=== PATIENT | female | born 1995 | race Caucasian/White ===

== ENCOUNTER → 2016-11-10 | Outpatient (CLI) | payer OTHER ==
[~2016-11-10] MED LIST: CETI10TA84 PO; MONT1TAB3 PO; PRENTAB26 PO
[2016-11-10 13:51] LABS: GTGD 50 Grams
[2016-11-11 15:19] LABS: AFP CONCENTRATION 30.3 NG/ML; AFP MULTIPLE OF MEDIAN 1.02; AFPTS GESTATIONAL AGE 16.6 WEEKS; AFPTS INSULIN DEP DIABETIC? NO; AFPTS MATERNAL WT 195 LBS; ALPHA-FETOPROTEIN RACE CAUCASIAN=W; ESTRIOL MULTIPLE OF MEDIAN 0.91; HISTORY OF NTD NO; INHIBIN A 625 PG/ML; INHIBIN A MOM 4.22; REPEAT SAMPLE? NO; hCG MULTIPLE OF MEDIAN 1.27
== END | disposition home or self-care (01) ==
LOC: C.LAB1850 11:04
PROVIDERS: ATTEND Obstetrics & Gynecology
DX: Z34.90 Encounter for supervision of normal pregnancy, unspecified, unspecified trimester (principal)

== ENCOUNTER → 2017-01-06 | Outpatient (CLI) | payer OTHER ==
[2017-01-06 13:55] LABS: URINE APPEARANCE CLEAR (CLEAR); URINE BILIRUBIN NEG (NEG); URINE COLOR YELLOW; URINE EPITHELIAL CELL AUTO >30 /lpf (0-5); URINE NITRITE NEG (NEG); URINE PH 7.5 (4.5-7.5); UROBILINOGEN NEG (NEG); ZZUR CULT IF INDIC CLEAN CATCH YES
[2017-01-06 14:16] LABS: MANUAL MICROSCOPIC REQUIRED? NO; REVIEW REQ? NO; SULFASALICYLIC ACID POS (NEG)
== END | disposition home or self-care (01) ==
LOC: C.LABSPEC 13:28
PROVIDERS: ATTEND Obstetrics & Gynecology
DX: Z87.59 Personal history of other complications of pregnancy, childbirth and the puerperium (principal)

== ENCOUNTER → 2017-01-12 | Outpatient (CLI) | payer OTHER ==
[2017-01-12 12:00] LABS: PATIENT HEIGHT 162.6 cm
[2017-01-12 14:04] LABS: URINE TOTAL PROTEIN 40.5 mg/dl (0-11.9)
[2017-01-12 14:16] LABS: CREATININE 0.69 mg/dl (0.6-1.2); URINE TOTAL PROTEIN CALC 575.1 mg/24 hr (0-149.1)
== END | disposition home or self-care (01) ==
LOC: C.LAB1850 11:49
PROVIDERS: ATTEND Obstetrics & Gynecology
DX: Z34.82 Encounter for supervision of other normal pregnancy, second trimester (principal)

== ENCOUNTER → 2017-01-17 | Outpatient (CLI) | payer OTHER ==
[2017-01-17 16:42] LABS: HEMATOCRIT 37.2 % (37-47); MEAN CELL VOLUME 92.8 fL (80-100); MEAN CORPUSCULAR HEMOGLOBIN 31.2 pg (25-34); MEAN CORPUSCULAR HGB CONC 33.6 g/dl (32-36); PLATELET COUNT 284 K/uL (130-400); RED BLOOD COUNT 4.01 M/uL (4.2-5.4); WHITE BLOOD COUNT 11.39 K/uL (4.8-10.8)
[2017-01-17 17:03] LABS: ALT/SGPT 22 U/L (12-78); AST/SGOT 20 U/L (15-37); BLOOD UREA NITROGEN 13 mg/dl (7-18); BUN/CREATININE RATIO 20.5 (10-20); CALCIUM 9.1 mg/dl (8.5-10.1); CARBON DIOXIDE 27 mmol/L (21-32); CHLORIDE 107 mmol/L (98-107); CREATININE 0.62 mg/dl (0.60-1.20); GLUCOSE 59 mg/dl (70-99); POTASSIUM 3.8 mmol/L (3.5-5.1); SODIUM 140 mmol/L (136-145)
[2017-01-17 17:06] LABS: ALB/GLOB RATIO 0.9 (0.9-2); ALKALINE PHOSPHATASE 72 U/L (45-117)
== END | disposition home or self-care (01) ==
LOC: C.LAB1850 15:03
PROVIDERS: ATTEND Obstetrics & Gynecology
DX: O12.12 Gestational proteinuria, second trimester (principal)

== ENCOUNTER → 2017-01-23 | Outpatient (CLI) | payer OTHER ==
[2017-01-23 13:18] LABS: HEMATOCRIT 38.8 % (37-47); MEAN CELL VOLUME 92.8 fL (80-100); MEAN CORPUSCULAR HEMOGLOBIN 30.4 pg (25-34); MEAN CORPUSCULAR HGB CONC 32.7 g/dl (32-36); MEAN PLATELET VOLUME 10.9 fL (7.4-10.4); PLATELET COUNT 296 K/uL (130-400); RED BLOOD COUNT 4.18 M/uL (4.2-5.4); WHITE BLOOD COUNT 12.26 K/uL (4.8-10.8)
[2017-01-23 13:59] LABS: CALCIUM 9.4 mg/dl (8.5-10.1)
[2017-01-23 14:04] LABS: ALB/GLOB RATIO 0.9 (0.9-2); ALKALINE PHOSPHATASE 68 U/L (45-117); ALT/SGPT 18 U/L (12-78); AST/SGOT 18 U/L (15-37); BLOOD UREA NITROGEN 9 mg/dl (7-18); CARBON DIOXIDE 25 mmol/L (21-32); CHLORIDE 106 mmol/L (98-107); CREATININE 0.62 mg/dl (0.60-1.20); GLUCOSE 61 mg/dl (70-99); SODIUM 139 mmol/L (136-145)
[2017-01-23 14:09] LABS: BASO % 0.2 %; BASO ABS # 0.03 K/uL (0-0.2); COMPLETE YES; EOS % 0.7 %; IG% 0.3 %; LYMPH ABS # 5.03 K/uL (1.2-3.4); MONO % 8.1 %; NEUT % 49.7 %
== END | disposition home or self-care (01) ==
LOC: C.LAB1850 11:30
PROVIDERS: ATTEND Obstetrics & Gynecology
DX: O12.12 Gestational proteinuria, second trimester (principal)

== ENCOUNTER 2017-02-02 12:58 | Inpatient (IN) | payer OTHER ==
[~2017-02-02] VITALS: Ht 165.1 cm; Wt 93.9 kg
[~2017-02-02 12:58] MED LIST changes: -MONT1TAB3 PO
[2017-02-02] MEDS ORDERED: LACTATED RINGER'S 1000ML 1,000 ML IV PRN (13:48)
[2017-02-02] MEDS ORDERED: LACTATED RINGER'S 1000ML 1,000 ML IV SCH (13:48)
[2017-02-02] MEDS ORDERED: MISOPROSTOLTAB 50 MCG TAB PV ONE (14:00)
[2017-02-02] MEDS ORDERED: MISOPROSTOL 200 MCG TAB ONE (14:03)
[2017-02-02 14:25] LABS: HEMATOCRIT 39.3 % (37-47); MEAN CORPUSCULAR HEMOGLOBIN 30.6 pg (25-34); MEAN CORPUSCULAR HGB CONC 33.6 g/dl (32-36); MEAN PLATELET VOLUME 9.8 fL (7.4-10.4); PLATELET COUNT 297 K/uL (130-400); RED BLOOD COUNT 4.32 M/uL (4.2-5.4); WHITE BLOOD COUNT 11.68 K/uL (4.8-10.8)
[2017-02-02 14:37] LABS: INR 0.9 (0.9-1.1); PROTHROMBIN TIME (PATIENT) 9.9 SECONDS (9.0-12.0)
[2017-02-02 14:56] LABS: ALT/SGPT 24 U/L (12-78); AST/SGOT 19 U/L (15-37); BLOOD UREA NITROGEN 7 mg/dl (7-18); BUN/CREATININE RATIO 10.8 (10-20); CARBON DIOXIDE 24 mmol/L (21-32); CHLORIDE 109 mmol/L (98-107); CREATININE 0.61 mg/dl (0.60-1.20); GLUCOSE 81 mg/dl (70-99); SODIUM 142 mmol/L (136-145)
[2017-02-02 14:58] LABS: ALB/GLOB RATIO 0.9 (0.9-2); ALKALINE PHOSPHATASE 71 U/L (45-117)
[2017-02-02] MEDS ORDERED: BUTORPHANOL TARTRATE 1 MG/ML VIAL IV PRN (18:30)
[2017-02-02] MEDS ORDERED: BUTORPHANOL TARTRATE 1 MG/ML VIAL ONE (18:32)
[2017-02-02 18:43] VITALS: Ht 165.1 cm; Wt 93.9 kg
[2017-02-02] MEDS ORDERED: MONT1TAB3 PO (18:44)
[2017-02-02] MEDS ORDERED: OXYTOCIN 30 UNITS/500ML NSS IV ONE (21:09)
[2017-02-02] MEDS ORDERED: OXYCODONE/ACETAMINOPHEN 5-325 TAB PO PRN (21:15)
[2017-02-02] MEDS ORDERED: OXYTOCIN 30 UNITS/500ML NSS IV PRN (21:15)
[2017-02-02] MEDS ORDERED: ACETAMINOPHEN 325 MG TAB PO PRN (21:15)
[2017-02-02] MEDS ORDERED: ACETAMINOPHEN/CODEINE 300/30MG TAB PO PRN ×2 (21:15)
[2017-02-02] MEDS ORDERED: SUPERCREAM 0.870 % 15GM JAR EXT PRN (21:15)
[2017-02-02] MEDS ORDERED: HYDROCORTISONE ACETATE 25 MG SUPP PR PRN (21:15)
[2017-02-02] MEDS ORDERED: LANOLIN OINT EXT PRN ×2 (21:15)
[2017-02-02] MEDS ORDERED: IBUPROFEN 600 MG TAB PO PRN (21:15)
[2017-02-02] MEDS ORDERED: BENZOCAINE 20% AER SPR 82.5 GM CAN EXT PRN (21:15)
--- NOTE | 2017-02-03 02:29 | DELIVERY SUMMARY ---
DATE OF OPERATION: 02/02/2017 Barbie presented to labor and delivery after being diagnosed with an intrauterine . She was approximately 28 weeks . However, the fetus was 22-week size on ultrasound. No heart rate was found. Patient was admitted. Labs were ordered, including coagulation studies and pH values, which were all normal. She was induced with 200 mcg of Cytotec per vagina and around 9 p.m., she presented fully dilated and delivered vaginally on the bed. The cord was clamped and baby wrapped in a blanket and handed to parents. The placenta, soon afterwards, delivered with gentle traction. I felt the placenta did deliver intact. Bleeding was minimal, IV Pitocin started. Sponge and instrument counts were correct. Estimated blood loss 50 mL and there was no tearing. I attest to the content of the Intraoperative Record and any orders documented therein. Any exceptio ns are noted below.
--- NOTE | 2017-02-03 06:32 | Discharge Instructions ---
Discharge Instructions Date of Service February 03, 2017. Admission Reason for Admission: Demise @ 28 Weeks Discharge Discharge Diagnosis / Problem: demise Discharge Goals Goal(s): Improve function Activity Recommendations Activity Limitations: per Instructions/Follow-up section . Instructions / Follow-Up Instructions / Follow-Up . ACTIVITY RECOMMENDATIONS: * Vaginal rest (no tampons, douching, intercourse) until after doctor 's visit. * control as discussed with doctor. * Wear a bra for 24 hours/day for comfort. SPECIAL CARE INSTRUCTIONS: Medications: * vitamins, one tablet daily. Continue taking until prescription is complete. Call you doctor if: * Temperature greater than or equal to 100.4 degrees F or 38.0 degrees C. * Bleeding becomes heavier than the heaviest part of your period - saturating a sanitary pad within an hour. * Passing large clots. * Unrelieved pain. * Bleeding has a foul smelling odor. * Signs and symptoms of phlebitis: leg pain, warm, red or swollen area on leg. incision has increased pain, redness, swelling, presence of any drainage, or if the incision starts to open up. FOLLOW UP VISIT: If appointment is not already scheduled: Please call doctor's office to schedule a follow-up appointment. Current Hospital Diet Patient's current hospital diet: Regular OB Diet Discahrge Diet Recommended Diet: Regular Diet Pending Studies Studies pending at discharge: no Medical Emergencies . Who to Call and When: Medical Emergencies: If at any time you feel your situation is an emergency, please call 911 immediately. . Non-Emergent Contact Non-Emergency issues call your: Hand Inspector . . "Provider Documentation" section prepared by Thor Weiner. . VTE Core Measure Inpt VTE Proph given/why not?: Treatment not indicated
[2017-02-03] MEDS ORDERED: DOCUSATE SODIUM 100 MG CAP PO SCH (08:00)
[2017-02-03] MEDS ORDERED: BISACODYL 5 MG TABEC PO SCH (20:00)
[2017-02-04] MEDS ORDERED: BISACODYL 10 MG SUPP PR PRN (07:00)
== END 2017-02-03 09:50 | disposition home or self-care (01) | DRG 775 ==
LOC: C.LD 12:58
PROVIDERS: ADMIT Obstetrics & Gynecology; ATTEND Obstetrics & Gynecology
PROC: 10E0XZZ Delivery of Products of Conception, External Approach (ICD-10-PCS; principal; 2017-02-02)
PROC: 3E0P7GC Introduction of Other Therapeutic Substance into Female Reproductive, Via Natural or Artificial Opening (ICD-10-PCS; principal; 2017-02-02)
DX: O36.4XX0 Maternal care for intrauterine death, not applicable or unspecified (principal); O41.03X0 Oligohydramnios, third trimester, not applicable or unspecified; Z3A.28 28 weeks gestation of pregnancy; Z37.1 Single stillbirth

== ENCOUNTER → 2017-06-21 | Outpatient (CLI) | payer OTHER ==
[~2017-06-21] MED LIST changes: -CETI10TA84 PO; +MONT1TAB3 PO
[2017-06-21 14:19] LABS: URINE APPEARANCE CLEAR (CLEAR); URINE BILIRUBIN NEG (NEG); URINE COLOR YELLOW; URINE NITRITE NEG (NEG); URINE PH 5.5 (4.5-7.5); URINE SPECIFIC GRAVITY 1.011 (1.000-1.030); UROBILINOGEN NEG (NEG)
[2017-06-21 14:26] LABS: MANUAL MICROSCOPIC REQUIRED? NO; REVIEW REQ? NO
== END | disposition home or self-care (01) ==
LOC: C.LABSPEC 13:40
PROVIDERS: ATTEND Obstetrics & Gynecology
DX: O09.291 Supervision of pregnancy with other poor reproductive or obstetric history, first trimester (principal)

== ENCOUNTER → 2017-06-22 | Outpatient (CLI) | payer OTHER ==
[2017-06-22 12:09] LABS: BASO % 0.3 %; BASO ABS # 0.03 K/uL (0-0.2); COMPLETE YES; EOS % 0.8 %; HEMATOCRIT 38.5 % (37-47); IG% 0.3 %; LYMPH % 26.5 %; LYMPH ABS # 2.54 K/uL (1.2-3.4); MEAN CELL VOLUME 87.9 fL (80-100); MEAN CORPUSCULAR HEMOGLOBIN 28.8 pg (25-34); MEAN CORPUSCULAR HGB CONC 32.7 g/dl (32-36); MEAN PLATELET VOLUME 9.5 fL (7.4-10.4); MONO % 6.9 %; NEUT % 65.2 %; PLATELET COUNT 400 K/uL (130-400); RED BLOOD COUNT 4.38 M/uL (4.2-5.4); WHITE BLOOD COUNT 9.59 K/uL (4.8-10.8)
[2017-06-25 13:34] LABS: CHLAMYDIA TRACH RNA*** NOT DETECTED (NOT DETECTED); GC (NEIS GONORRHOEAE)RNA** NOT DETECTED (NOT DETECTED)
== END | disposition home or self-care (01) ==
LOC: C.LAB1850 10:23
PROVIDERS: ATTEND Obstetrics & Gynecology
DX: O09.291 Supervision of pregnancy with other poor reproductive or obstetric history, first trimester (principal)

== ENCOUNTER → 2017-08-14 | Outpatient (CLI) | payer OTHER ==
[2017-08-14 14:09] LABS: GTGD 50 Grams
== END | disposition home or self-care (01) ==
LOC: C.LAB1850 10:09
PROVIDERS: ATTEND Obstetrics & Gynecology
DX: O09.292 Supervision of pregnancy with other poor reproductive or obstetric history, second trimester (principal); Z3A.00 Weeks of gestation of pregnancy not specified

== ENCOUNTER → 2017-11-10 | Outpatient (CLI) | payer OTHER ==
[2017-11-10 13:15] LABS: HEMATOCRIT 34.3 % (37-47); HEMOGLOBIN 11.4 g/dL (12.0-16.0)
[2017-11-10 13:45] LABS: ALBUMIN 2.7 gm/dl (3.4-5.0); ALT/SGPT 17 U/L (12-78); AST/SGOT 12 U/L (15-37); BLOOD UREA NITROGEN 6 mg/dl (7-18); CARBON DIOXIDE 24 mmol/L (21-32); CREATININE 0.61 mg/dl (0.60-1.20); GLUCOSE 159 mg/dl (70-99); POTASSIUM 3.3 mmol/L (3.5-5.1); SODIUM 137 mmol/L (136-145)
[2017-11-10 13:46] LABS: ALKALINE PHOSPHATASE 77 U/L (45-117); TOTAL PROTEIN 6.4 gm/dl (6.4-8.2)
== END | disposition home or self-care (01) ==
LOC: C.LAB1850 11:59
PROVIDERS: ATTEND Obstetrics & Gynecology
DX: O09.293 Supervision of pregnancy with other poor reproductive or obstetric history, third trimester (principal); Z3A.00 Weeks of gestation of pregnancy not specified

== ENCOUNTER → 2017-11-23 | Outpatient (CLI) | payer OTHER | END | disposition home or self-care (01) | LOC: C.LAB1850 09:20 | PROVIDERS: ATTEND Obstetrics & Gynecology | DX: O28.1 Abnormal biochemical finding on antenatal screening of mother (principal) ==

== ENCOUNTER 2018-01-02 21:23 | Observation (INO) | payer OTHER ==
[2018-01-02 22:33] LABS: BASO % 0.2 %; BASO ABS # 0.02 K/uL (0-0.2); EOS % 0.7 %; EOS ABS # 0.09 K/uL (0-0.5); HEMATOCRIT 33.1 % (37-47); HEMOGLOBIN 11.4 g/dL (12.0-16.0); IG# 0.13 K/uL (0.00-0.02); LYMPH % 21.2 %; LYMPH ABS # 2.57 K/uL (1.2-3.4); MEAN CELL VOLUME 86.6 fL (80-100); MEAN CORPUSCULAR HEMOGLOBIN 29.8 pg (25-34); MEAN PLATELET VOLUME 9.3 fL (7.4-10.4); MONO % 9.5 %; MONO ABS # 1.16 K/uL (0.11-0.59); NEUT % 67.3 %; NEUT ABS # 8.18 K/uL (1.4-6.5); PLATELET COUNT 340 K/uL (130-400); RED CELL DISTRIBUTION WIDTH CV 13.1 % (11.5-14.5); RED CELL DISTRIBUTION WIDTH SD 41.6 fL (36.4-46.3); WHITE BLOOD COUNT 12.15 K/uL (4.8-10.8)
[2018-01-02 22:36] LABS: MEAN CORPUSCULAR HGB CONC 34.4 g/dl (32-36)
[2018-01-02] MEDS ORDERED: IV FLUIDS COMPLETED PRN (22:45)
[2018-01-02 22:51] LABS: ALT/SGPT 16 U/L (12-78); AST/SGOT 13 U/L (15-37); CREATININE 0.57 mg/dl (0.60-1.20); URIC ACID 3.9 mg/dl (2.6-7.2)
== END 2018-01-02 23:37 | disposition home or self-care (01) ==
LOC: C.LD 21:23 → C.OPB 21:23 → C.LD 22:14 → C.OPB 22:14
PROVIDERS: ADMIT Obstetrics & Gynecology; ATTEND Obstetrics & Gynecology
DX: O99.89 Other specified diseases and conditions complicating pregnancy, childbirth and the puerperium (principal); H53.9 Unspecified visual disturbance; R68.89 Other general symptoms and signs

== ENCOUNTER → 2018-01-03 | Outpatient (CLI) | payer OTHER | END | disposition home or self-care (01) | LOC: C.LABSPEC 13:28 | PROVIDERS: ATTEND Obstetrics & Gynecology | DX: O09.293 Supervision of pregnancy with other poor reproductive or obstetric history, third trimester (principal); Z3A.00 Weeks of gestation of pregnancy not specified ==

== ENCOUNTER → 2018-01-04 | Outpatient (CLI) | payer OTHER ==
[2018-01-04 12:30] LABS: BASO % 0.2 %; BASO ABS # 0.02 K/uL (0-0.2); EOS % 0.9 %; HEMATOCRIT 33.7 % (37-47); HEMOGLOBIN 11.2 g/dL (12.0-16.0); IG# 0.13 K/uL (0.00-0.02); LYMPH % 20.4 %; LYMPH ABS # 2.27 K/uL (1.2-3.4); MEAN CELL VOLUME 88.2 fL (80-100); MEAN CORPUSCULAR HEMOGLOBIN 29.3 pg (25-34); MEAN CORPUSCULAR HGB CONC 33.2 g/dl (32-36); MEAN PLATELET VOLUME 9.7 fL (7.4-10.4); MONO ABS # 0.89 K/uL (0.11-0.59); NEUT % 69.3 %; NEUT ABS # 7.72 K/uL (1.4-6.5); PLATELET COUNT 371 K/uL (130-400); RED CELL DISTRIBUTION WIDTH CV 13.2 % (11.5-14.5); RED CELL DISTRIBUTION WIDTH SD 42.6 fL (36.4-46.3); WHITE BLOOD COUNT 11.13 K/uL (4.8-10.8)
[2018-01-04 12:46] LABS: ALBUMIN 2.3 gm/dl (3.4-5.0); ALKALINE PHOSPHATASE 165 U/L (45-117); ALT/SGPT 16 U/L (12-78); AST/SGOT 18 U/L (15-37); URIC ACID 3.6 mg/dl (2.6-7.2)
== END | disposition home or self-care (01) ==
LOC: C.LAB1850 09:52
PROVIDERS: ATTEND Obstetrics & Gynecology
DX: O09.299 Supervision of pregnancy with other poor reproductive or obstetric history, unspecified trimester (principal)

== ENCOUNTER 2018-01-08 11:59 | Outpatient (CLI) | payer OTHER ==
[~2018-01-08] VITALS: Ht 162.6 cm; Wt 101.8 kg
[2018-01-08] MEDS ORDERED: IV FLUIDS COMPLETED PRN (13:00)
[2018-01-08 13:01] LABS: BASO % 0.2 %; BASO ABS # 0.02 K/uL (0-0.2); EOS % 0.6 %; EOS ABS # 0.07 K/uL (0-0.5); HEMATOCRIT 32.6 % (37-47); LYMPH % 16.6 %; MEAN CELL VOLUME 86.7 fL (80-100); MEAN CORPUSCULAR HEMOGLOBIN 29.3 pg (25-34); MEAN PLATELET VOLUME 9.4 fL (7.4-10.4); MONO % 9.8 %; MONO ABS # 1.24 K/uL (0.11-0.59); NEUT ABS # 9.13 K/uL (1.4-6.5); PLATELET COUNT 334 K/uL (130-400); RED CELL DISTRIBUTION WIDTH CV 12.9 % (11.5-14.5); RED CELL DISTRIBUTION WIDTH SD 41.2 fL (36.4-46.3); WHITE BLOOD COUNT 12.66 K/uL (4.8-10.8)
[2018-01-08 13:11] VITALS: Ht 162.6 cm; Wt 101.8 kg
[2018-01-08 13:11] LABS: INR 0.9 (0.9-1.1)
[2018-01-08 13:20] LABS: ALT/SGPT 14 U/L (12-78); AST/SGOT 13 U/L (15-37); CREATININE 0.46 mg/dl (0.60-1.20); URIC ACID 3.2 mg/dl (2.6-7.2)
[2018-01-08 13:30] LABS: MEAN CORPUSCULAR HGB CONC 33.7 g/dl (32-36)
== END 2018-01-08 15:47 | disposition home or self-care (01) ==
LOC: C.LD 11:59 → C.OPB 11:59
PROVIDERS: ATTEND Obstetrics & Gynecology
DX: O13.3 Gestational [pregnancy-induced] hypertension without significant proteinuria, third trimester (principal); O99.343 Other mental disorders complicating pregnancy, third trimester; F32.9 Major depressive disorder, single episode, unspecified; Z3A.36 36 weeks gestation of pregnancy

== ENCOUNTER 2018-01-08 20:30 | Inpatient (IN) | payer OTHER ==
[~2018-01-08] VITALS: Ht 162.6 cm; Wt 101.6 kg
[2018-01-08] MEDS ORDERED: LACTATED RINGER'S 1000ML 1,000 ML IV SCH (21:06)
[2018-01-08] MEDS ORDERED: LACTATED RINGER'S 1000ML 1,000 ML IV PRN (21:06)
[2018-01-08] MEDS ORDERED: LACTATED RINGER'S 1000ML 500 ML IV PRN (21:06)
[2018-01-08] MEDS ORDERED: OXYTOCIN 30 UNITS/500ML NSS IV PRN (21:15)
[2018-01-08 21:30] VITALS: Ht 162.6 cm; Wt 101.6 kg
[2018-01-08] MEDS ORDERED: PENICILLIN G POTASSIUM IV 6 MU in DEXTROSE 5% 250ML 250 ML IV ONE (21:30)
[2018-01-09] MEDS: PENICILLIN G POTASSIUM IV 3 MU in DEXTROSE 5% 100ML 100 ML IV PRN ×3 (01:45→09:52)
[2018-01-09] MEDS ORDERED: FENTANYL CITRATE INJ 50 MCG/1 ML 2 ML VIAL ONE (04:35)
[2018-01-09] MEDS ORDERED: BUPIVACAINE 0.25% 30 ML VIAL ONE (04:35)
[2018-01-09] MEDS ORDERED: EpHEDrine SULFATE INJ 50 MG/ML AMP ONE (04:35)
[2018-01-09] MEDS ORDERED: FENTANYL 2MCG/ML ROPIV 1.25MG/ML 100ML BAG EPI ONE (04:36)
[2018-01-09] MEDS ORDERED: NALOXONE HCL INJ 1 MG in SODIUM CHLORIDE 0.9% 1000ML 1,000 ML IV PRN ×4 (05:10)
[2018-01-09] MEDS ORDERED: LACTATED RINGER'S 1000ML 500 ML IV PRN (05:10)
[2018-01-09] MEDS ORDERED: ONDANSETRON INJ 2 MG/ML 2 ML VIAL IV PRN (05:15)
[2018-01-09] MEDS ORDERED: DiphenhydrAMINE HCL 50 MG/ML VIAL IV PRN (05:15)
[2018-01-09] MEDS ORDERED: FENTANYL 2MCG/ML ROPIV 1.25MG/ML 100ML BAG EPI PRN (05:15)
[2018-01-09] MEDS ORDERED: PROMETHAZINE HCL INJ 25 MG in SODIUM CHLORIDE 0.9% 50ML 50 ML IV PRN (05:15)
[2018-01-09] MEDS ORDERED: NALOXONE HCL INJ 0.4 MG/1 ML VIAL/CARP IV PRN (05:15)
[2018-01-09] MEDS ORDERED: EpHEDrine SULFATE INJ 50 MG/ML AMP IV PRN (05:15)
[2018-01-09] MEDS ORDERED: NALBUPHINE HCL INJ 10 MG/ML AMP IV PRN (05:15)
[2018-01-09] MEDS ORDERED: OXYTOCIN INJ 10 UNITS/ML VIAL ONE (11:01)
[2018-01-09] MEDS ORDERED: DIPHTHERIA/TETANUS/PERTUSSIS 0.5 ML SYR/VIAL IM. ONE (11:15)
[2018-01-09] MEDS ORDERED: BENZOCAINE 20% AER SPR 82.5 GM CAN EXT PRN (11:15)
[2018-01-09] MEDS ORDERED: SUPERCREAM 0.870 % 15GM JAR EXT PRN (11:15)
[2018-01-09] MEDS ORDERED: OXYCODONE/ACETAMINOPHEN 5-325 TAB PO PRN (11:15)
[2018-01-09] MEDS ORDERED: LANOLIN OINT EXT PRN (11:15)
[2018-01-09] MEDS ORDERED: HYDROCORTISONE ACETATE 25 MG SUPP PR PRN (11:15)
[2018-01-09] MEDS ORDERED: OXYTOCIN INJ 10 UNITS/ML VIAL IM ONE (11:15)
[2018-01-09] MEDS ORDERED: ACETAMINOPHEN 325 MG TAB PO PRN (11:15)
--- NOTE | 2018-01-09 12:09 | Anesthesia Procedure Note ---
Anesthesia Epidural Removal Nt Date & Time Jan 09, 2018 at 12:09 Vital Signs Pain Intensity: 0.0 Notes Mental Status: alert / awake / arousable, participated in evaluation Nausea / Vomiting: adequately controlled Pain: adequately controlled Airway Patency, RR, SpO2: stable & adequate BP & HR: stable & adequate Hydration State: stable & adequate Neuraxial Anesthesia: was administered Anesthetic Complications: no major complications apparent, pt satisfied with anesthetic care Epidural: removed without complications, with tip intact
--- NOTE | 2018-01-09 12:21 | DELIVERY SUMMARY ---
DATE OF OPERATION: 01/09/2018 PREOPERATIVE DIAGNOSES: 1. Intrauterine at 37 and 0/7th weeks. 2. Gestational hypertension. 3. History of previous 28-week demise. 4. GBS positive. POSTOPERATIVE DIAGNOSES: 1. Intrauterine at 37 and 0/7th weeks. 2. Gestational hypertension. 3. History of previous 28-week demise. 4. GBS positive. PROCEDURES: 1. Sotomayor bulb for cervical ripening. 2. Penicillin for treatment of group B Strep positive status. 3. Pitocin augmentation. 4. Amniotomy for clear fluid. 5. Intrauterine pressure catheter. 6. Normal spontaneous vaginal delivery. SURGEON: Lisa Rodriguez MD ANESTHESIA: Epidural. ESTIMATED BLOOD LOSS: 350 mL. DESCRIPTION OF THE PROCEDURE: The patient presented to the office the day before her induction with a blood pressure of 180/108. She was sent to labor and delivery where her pressures were more reasonable 120s-140s/80s-90s, all of her workup was completely negative. The baby was category 1. The decision was made to proceed with a Sotomayor bulb for cervical ripening as was the plan for induction for the preceding day. The patient underwent a Sotomayor bulb for cervical ripening. The Sotomayor bulb fell out in the wee hours of the morning on 01/09/2018. Pitocin augmentation was started when she was 5 cm dilated. She underwent an amniotomy for clear fluid and an epidural anesthetic. 3 hours later, she was still 5 cm dilated, so an intrauterine pressure catheter was placed noting inadequate contractions and the Pitocin was increased until adequate contractions were obtained and then the patient progressed quickly to complete complete +2 station. She pushed effectively to deliver a viable female infant in direct occiput posterior presentation. The nose and mouth were bulb-suctioned. A nuchal cord x1 was reduced and the rest of the infant was then delivered through the body cord. There was immediate cry. The nose and mouth were again bulb-suctioned. The was placed on the maternal abdomen for drawing in attention. The cord was clamped and cut at 1-1/2 minutes of life. Cord blood and segment were obtained. The placenta was delivered spontaneously intact with a 3-vessel cord. Cervix, sulci, rectum, and perineum were all intact. There was no tear for repair. Hemostasis was obtained with IM Pitocin and fundal massage as the patient had lost her IV during pushing and hemostasis was excellent. Estimated blood loss 350 mL. Apgars were 8 and 9. Mother and baby were doing well at the end of the delivery. I attest to the content of the Intraoperative Record and any orders documented therein. Any exception s are noted below.
[2018-01-09 13:40] VITALS: BP 141/89; PULSE 93; TEMP 37; O2SAT 98
[2018-01-09] MEDS: IBUPROFEN 600 MG TAB PO PRN ×2 (15:17→20:24)
[2018-01-09 15:25] VITALS: BP 138/84; PULSE 76; TEMP 36.9; O2SAT 98
[2018-01-09 20:00] VITALS: BP 134/87; PULSE 76; TEMP 36.6; O2SAT 98
[2018-01-09] MEDS: DOCUSATE SODIUM 100 MG CAP PO SCH (20:24)
[2018-01-09 23:30] VITALS: BP 118/71; PULSE 81; TEMP 36.7
[2018-01-10 03:35] VITALS: BP 118/70; PULSE 73; TEMP 36.6
[2018-01-10 07:10] LABS: HEMATOCRIT 32.4 % (37-47); HEMOGLOBIN 10.7 g/dL (12.0-16.0)
--- NOTE | 2018-01-10 07:15 | Progress Note ---
Subjective Jan 10, 2018. Subjective conversation w/ patient, physical exam, chart review, lab review Ambulation: ambulating normally Voiding: no voiding problems Passing Gas: Yes Diet Tolerance: Regular Diet Lochia: Moderate Feeding Type: Breast Feeding Review of Systems Constitutional: No fever, No chills Respiratory: No cough, No shortness of breath Cardiac: No chest pain, No palpitations Abdomen: No pain, No nausea, No vomiting Female : No dysuria Pt denies WISDOM, visual changes, RUQ pain Objective Vital Signs Date Time Temp Pulse Resp B/P (MAP) Pulse Ox O2 Delivery O2 Flow Rate FiO2 01/10/18 03:35 36.6 73 16 118/70 (86) Room Air 01/09/18 23:30 Room Air 01/09/18 23:30 36.7 81 18 118/71 (87) Room Air 01/09/18 20:00 36.6 76 16 134/87 (103) 98 Room Air 01/09/18 15:25 36.9 76 18 138/84 (102) 98 Room Air 01/09/18 15:25 98 Room Air 01/09/18 13:40 37.0 93 20 141/89 (106) 98 Room Air 01/09/18 13:40 98 Room Air Physical Exam General Appearance: WELL-APPEARING, WD/WN, NO APPARENT DISTRESS Respiratory/Chest: lungs clear, no respiratory distress Cardiovascular: regular rate, rhythm, no murmur Abdomen: non tender, soft Fundus: Firm Extremities: non-tender, normal inspection Laboratory Results Last 24 Hours Test 01/10/18 06:56 Assessment and Plan Post- Day#: 1 Continue Routine Care: 22, f , AB+/GBS+/RI, gestational HTN, delivered vaginally, PPD1. Patient is doing well. No WISDOM, visual changes or RUQ pain. Reviewed vitals, BP of 141/89 following delivery, have since decreased to 120/70. Will continue to monitor pressures today. 1. Vaginal delivery; monitor lochia, ambulate, support bf, control pain 2. GHTN; monitor BP, follow up in the clinic in 3 days for BP check Resident Physician Supervision Note: I interviewed and examined the patient. Discussed with Dr. Gan and agree with findings and plan as documented in the note. Any exceptions or clarifications are listed here: Doing well. Routine care. Bps improved. No s/ s PET. Documented By: Lisa Rodriguez
--- NOTE | 2018-01-10 07:23 | Discharge Instructions ---
Discharge Instructions Date of Service Jan 10, 2018. Admission Reason for Admission: Induction Discharge Discharge Diagnosis / Problem: vaginal delivery Discharge Goals Goal(s): Routine recovery after delivery Medications Continue Dispensed Medications: supercream, dermaplast, tucks, lansinoh Activity Recommendations Activity Limitations: per Instructions/Follow-up section . Instructions / Follow-Up Instructions / Follow-Up ACTIVITY RECOMMENDATIONS: * Gradual return to full activity over the next 2-3 weeks. * No lifting - nothing heavier than baby over the next 2-3 weeks. * Do not engage in vigorous exercise, sexual activity or sports until cleared by your physician. * Do not drive or operate any motorized equipment until cleared by your physician. * You may shower/bathe daily. MEDICATIONS: For discomfort or pain, you may use Acetaminophen (Tylenol), Ibuprofen (Advil), or Naproxen (Aleve) following the package directions. For constipation you may use Colace following the package directions. BREAST CARE: If you are not breast feeding: * Wear a supportive bra 24 hours a day for one to two weeks. * Avoid stimulating your breasts and nipples as much as possible during the first few weeks after delivery. * When taking a shower, have the warm water hit your back, not breasts. * When your breasts feel full, apply ice packs. Usually three to four times a day helps ease the discomfort. * Take a mild pain medication (Tylenol / Motrin) when you are uncomfortable. If breast feeding: * Use breast milk to lubricate nipples. Lansinoh cream may be used for sore nipples. You do not need to remove cream prior to breast feeding. If using a different brand of cream, check the label for directions regarding removal of cream prior to nursing. * Wear a supportive bra. * If having problems with breasts or breast feeding, call a organizational effectiveness consultant or your health care provider. EPISIOTOMY CARE: After delivery, if you have an episiotomy (stitches), the following steps will ease discomfort and aid healing. * For the first 24 hours after delivery, place ice packs next to your episiotomy to help reduce swelling. * After the first 24 hour-period, sitz baths, either portable or in the tub, are suggested. A shower with a shower arm sprayed over the episiotomy may be comforting. * Meli care should be done after each voiding and bowel movement. Squirt warm water from a plastic bottle over the perineum (region of the body between the anus and urinary opening) and pat dry. * Use Dermoplast to ease discomfort. Shake container. [place] directly over the episiotomy. Place a Tucks on a clean sanitary pad next to your episiotomy. SPECIAL CARE INSTRUCTIONS: When you are discharged from the hospital, it is important for you to follow the instructions listed below: * During the first week at home, you should be able to care for yourself and your baby. In addition, the usual light household activities are encouraged. * Limit your activities to the way you feel. Do not try to clean the house or move furniture. Be sensible. * If you actively engage in sports and have done so up until the time of your delivery, you may resume these activities as soon as you feel able. This may take up to one month or even longer. Use good judgment. * Continue to take your vitamins for at least six weeks after the of your baby. * Your diet need not be limited unless you were on a special diet before your delivery. Breast-feeding mothers need around 2500 calories per day and at least 64-80 ounces of fluid per day (8 to 10 glasses). * You should eat foods from the four major food groups. Crash diets or fad diets are to be avoided. Eating lean meats, fresh fruits and vegetables, low-fat dairy products, high fiber foods and a regular exercise program, will help you get back to your pre- weight without putting your health at risk. * Constipation is sometimes a problem after delivery. Take a mild laxative as needed. If breast feeding, Milk of Magnesia is acceptable to use. You may use a suppository or Fleets enema if no episiotomy. * A daily shower or tub bath is suggested. Be sure to thoroughly and gently dry the perineum. * A bloody vaginal discharge will usually continue until around four weeks post . A small amount of bleeding may continue for as long as six weeks. Vaginal discharge changes from the bright red bleeding after delivery to pink then brownish and finally yellowish-pink before becoming white and disappearing. * Bleeding may increase with activity. Your first period may come in 4-8 weeks. If you are breast feeding, your period may be delayed even longer. * Aneth (sex) can begin whenever both you and your partner feel comfortable and do not have any form of genital infection. It is recommended that you wait at least six weeks for internal and external healing to occur. If you have questions, please talk to your health care practitioner. A condom should be used to prevent infection and . * Foreplay, gentle intercourse and lubrication is very important the first several times to prevent pain. A water-based lubricant such as K-Y jelly or Astroglide may be used. * If you have RH negative blood and your baby is RH positive, you will receive RHOGAM by injection prior to discharge. The nurse will give you a card to keep with you that has the date and place that you received RHOGAM after delivery. * During your care, you had a Rubella screen done to check for the presence of rubella antibodies in your blood. If your test was negative, you will receive a Rubella vaccine prior to discharge. This vaccine may cause a fever, soreness at the injection site and flu-like symptoms. If these symptoms persist, notify your health care practitioner. is not advised for one month after a Rubella vaccine. * Verbalizes understanding of car seat law as reviewed with patient nursing. * Car Seat hand-out given and reviewed with patient by nursing. * Shaken baby information reviewed with patient by nursing. Call you doctor if: * Heavy bleeding (saturating several pads an hour) or passing clots the size of your fist. * A fever >101 degrees F (38.3 degrees C) on two occasions four hours apart and /or chills. * Unusual pain in the pelvic or vaginal areas. * "Baby Blues" lasting longer than two weeks. If you have any questions or concerns, call your health care practitioner at . FOLLOW UP VISIT: * Please call the office at to schedule a 6 week examination. It is important you keep this appointment. It is important for you to make arrangements for either yearly or twice yearly check-ups thereafter. Current Hospital Diet Patient's current hospital diet: Regular OB Diet Discharge Diet Recommended Diet: Regular Diet, Regular OB Diet Pending Studies Studies pending at discharge: no Medical Emergencies . Who to Call and When: Medical Emergencies: If at any time you feel your situation is an emergency, please call [phone] immediately. . Non-Emergent Contact Non-Emergency issues call your: Primary Care Provider, Riveting Machine Operator Automatic . . "Provider Documentation" section prepared by Jimbo Gan. .
[2018-01-10] MEDS: PRENATAL VITAMIN TAB PO SCH (07:44)
[2018-01-10] MEDS: DOCUSATE SODIUM 100 MG CAP PO SCH ×2 (07:44→19:49)
[2018-01-10] MEDS: IBUPROFEN 600 MG TAB PO PRN ×3 (07:45→20:40)
[2018-01-10 08:50] VITALS: BP 135/85; PULSE 75; TEMP 36.7
[2018-01-10 16:40] VITALS: BP 129/83; PULSE 80; TEMP 36.7; O2SAT 98
[2018-01-11 00:30] VITALS: BP_SYST 122; BP_SYST 123; BP_DIAS 70; BP_DIAS 71; PULSE 77; TEMP 36.5; O2SAT 97; O2SAT 98
--- NOTE | 2018-01-11 06:40 | Progress Note ---
Subjective Jan 11, 2018. Subjective conversation w/ patient, physical exam, chart review, lab review Ambulation: ambulating normally Voiding: no voiding problems Passing Gas: Yes Diet Tolerance: Regular Diet Lochia: Small Feeding Type: Breast Feeding Review of Systems Constitutional: No fever, No chills Respiratory: No cough, No shortness of breath Cardiac: No chest pain, No palpitations Abdomen: No pain, No nausea, No vomiting Female : No dysuria Objective Vital Signs Date Time Temp Pulse Resp B/P (MAP) Pulse Ox O2 Delivery O2 Flow Rate FiO2 01/11/18 00:30 97 Room Air 01/11/18 00:30 36.5 77 18 122/71 (88) 97 Room Air 01/10/18 16:40 98 Room Air 01/10/18 16:40 36.7 80 16 129/83 (98) 98 Room Air 01/10/18 08:50 Room Air 01/10/18 08:50 36.7 75 20 135/85 (102) Room Air Physical Exam General Appearance: WELL-APPEARING, WD/WN, NO APPARENT DISTRESS Respiratory/Chest: lungs clear, no respiratory distress Cardiovascular: regular rate, rhythm, no murmur Abdomen: non tender, soft Fundus: Firm Extremities: non-tender, normal inspection Laboratory Results Last 24 Hours Test 01/10/18 06:56 Hemoglobin 10.7 g/dL Hematocrit 32.4 % Assessment and Plan Post- Day#: 2 Continue Routine Care: 22, f , AB+/GBS+/RI, gestational HTN, delivered vaginally, PPD2. Patient is doing well. No WISDOM, visual changes or RUQ pain. Reviewed vitals, BP approx 120/ 70 with isolated readings of 135/85. Will continue to monitor pressures in the outpatient. 1. Vaginal delivery; monitor lochia, ambulate, support bf, control pain 2. GHTN; monitor BP, follow up in the clinic in 3 days for BP check 3. Prepared patient for discharge today Resident Physician Supervision Note: I was present with Dr. Gan during the history and exam. I discussed the case with the resident and agree with the findings and plan as documented in the note. Any exceptions or clarifications are listed here: PPD#2 doing well. Anticipate discharge home today. Discharge instructions reviewed . Documented By: Radha Mccormick
[2018-01-11 07:28] VITALS: O2SAT 99
[2018-01-11 07:35] VITALS: BP 133/80; PULSE 75; TEMP 36.7; O2SAT 99
[2018-01-11] MEDS: DOCUSATE SODIUM 100 MG CAP PO SCH (08:13)
[2018-01-11] MEDS: PRENATAL VITAMIN TAB PO SCH (08:13)
[2018-01-11] MEDS: IBUPROFEN 600 MG TAB PO PRN (08:13)
[2018-01-11 13:15] VITALS: BP_DIAS 80; PULSE 75; TEMP 36.7
== END 2018-01-11 13:23 | disposition home or self-care (01) | DRG 775 ==
LOC: C.LD 20:30 → C.OBG 01-09 13:48
PROVIDERS: ADMIT Obstetrics & Gynecology; ATTEND Obstetrics & Gynecology
PROC: 0U7C7DZ Dilation of Cervix with Intraluminal Device, Via Natural or Artificial Opening (ICD-10-PCS; 2018-01-08)
PROC: 10E0XZZ Delivery of Products of Conception, External Approach (ICD-10-PCS; principal; 2018-01-09)
DX: O13.4 Gestational [pregnancy-induced] hypertension without significant proteinuria, complicating childbirth (principal); O99.824 Streptococcus B carrier state complicating childbirth; O69.82X0 Labor and delivery complicated by other cord entanglement, without compression, not applicable or unspecified; O99.214 Obesity complicating childbirth; E66.9 Obesity, unspecified; Z68.38 Body mass index [BMI] 38.0-38.9, adult; Z3A.37 37 weeks gestation of pregnancy; Z37.0 Single live birth; Z87.59 Personal history of other complications of pregnancy, childbirth and the puerperium

== ENCOUNTER 2023-04-11 07:40 | Inpatient (IN) ==
[2023-04-11] MEDS ORDERED: OXYTOCIN 30 UNITS/500 ML BAG IV PRN ×3 (08:18→17:28)
[2023-04-11] MEDS ORDERED: LIDOCAINE 1% LOCAL 20 ML VIAL INFIL PRN (08:18)
[2023-04-11] MEDS ORDERED: PENICILLIN G POTASSIUM 6 MU in DEXTROSE 5% 250 ML IV STA (08:22)
[2023-04-11] MEDS: LACTATED RINGER'S 1,000 ML IV PRN ×3 (08:33→16:40)
[2023-04-11 08:59] LABS: Hematocrit (blood only) 32.2 % (37.0-47.0); Hemoglobin 10.9 g/dl (12.0-16.0); Mean Corpuscular Hemoglobin 31.1 pg (25.0-34.0); Mean Corpuscular Hgb Conc 33.9 g/dL (32.0-36.0); Mean Corpuscular Volume 91.7 fL (80.0-100.0); Platelet Count 259 K/uL (130-400); RDW Coefficient of Variation 12.8 % (11.5-14.5); RDW Standard Deviation 42.4 fL (36.4-46.3); Red Blood Count 3.51 M/uL (4.20-5.40); White Blood Count 8.83 K/ul (4.8-10.8)
--- NOTE | 2023-04-11 12:44 | History & Physical Report ---
Date of Service April 11, 2023 Assessment & Plan (1) Chronic hypertension affecting : Plan: IUP at 38 weeks and multiparous female presents for induction of labor because of chronic hypertension. A cervical balloon was successfully placed and Pitocin induction begun. Blood pressures have been normotensive though we will continue to monitor through the labor process. Epidural analgesia if patient requests. Anticipate vaginal . Admission and Anticipated Discharge Date Admission Date: April 11, 2023 History of Present Illness Primary Care Provider: Madison Hoyos DO Patient is a 27-year-old 6 para 3-1-1-3 female EDC of 04/24/2023 who presents at 38 weeks for induction of labor because of chronic hypertension. She is taking 60 mg of propranolol daily for both her blood pressure and migraine headache prophylaxis. testing has been reassuring. On most recent growth scan, as noted right renal pyelectasis in the mild range. GBS is positive. Blood type is AB+. Allergies Allergy/AdvReac Type Severity Reaction Status Date / Time No Known Drug Allergies Allergy Verified 04/10/23 13:17 Home Medications Medication Instructions Recorded Confirmed Type prenat.vits,josiah,ing-[id number] 1 tab PO DAILY 07/12/22 04/11/23 History escitalopram oxalate 10 mg tablet 20 mg PO DAILY 10/11/22 04/11/23 History (Lexapro) propranolol 10 mg tablet 60 mg PO DAILY 11/10/22 04/11/23 History aspirin 81 mg capsule 81 mg PO DAILY 03/03/23 04/11/23 History breast pump #1 ea 04/04/23 04/10/23 Rx Patient History Medical History (Updated 04/11/23 @ 08:10 by Mohini Lynn RN) Depression with anxiety Encounter for initial management of intravaginal contraceptive demise Gestational hypertension History of pre-eclampsia in prior , currently Migraines Mild pre-eclampsia in third trimester (02/20/14) Plantar fasciitis surgery on right foot Surgical History S/P tooth extraction Family History Grandmother (Paternal) Hypertension Diabetes Breast cancer Denies family history of Ovarian cancer Colorectal cancer Social History (Updated 01/17/23 @ 13:16 by Kelly Dobbins) Smoking Status: Never smoker Do You Dip or Chew Tobacco: No; Hx Alcohol Use: No Hx Substance Use: No Preferred Language: [place] Communication Ability: Effective Turbine Subassembler Required: No Beliefs That Will Affect Care: None marital status: marital status details: Moses(29) [phone] Current Living Situation: Spouse and Family Current Living Situation Comment: lives with spouse, 3 children, 2 dogs. 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 Other Information That Helps Us Care for You: No Feels Safe at Home: Yes Safety Concerns: Feels Safe At This Time Review of Systems All systems reviewed & are unremarkable except as noted in HPI & below Physical Exam Constitutional: WD/WN, vitals as above Psychiatric: A+Ox3, euthymic affect Genitourinary: OB Exam Abdomen: + vertex and + estimated weight (6-7 pounds) Manual OB Exam: + cervical dilation fingertip, + cervical effacement 50% and + station high (vertex by ultrasound) OB Exam Monitor Tracing: + external FHT monitor used, + external uterine monitor used, + category I and + normal FHT variability Speculum was placed in the vagina and the cervix was identified. A Sotomayor catheter was inserted into the cervical os with direct visualization. 40 cc of sterile water were placed into the cervical balloon. The catheter was then placed on traction and attached to her left thigh. Patient tolerated the procedure well. Results & Data Vital Signs (Past 12 Hours) Vital Signs Temp Pulse Resp BP 04/11/23 08:12 97.9 F 20 04/11/23 12:30 18 04/11/23 12:30 18 04/11/23 11:30 18 04/11/23 11:30 18 04/11/23 12:00 49 L 04/11/23 12:00 109/62 04/11/23 11:14 54 L 04/11/23 11:14 116/71 04/11/23 10:00 20 04/11/23 10:00 20 04/11/23 10:09 57 L 04/11/23 10:09 98/59 L 04/11/23 09:30 18 04/11/23 09:30 18 04/11/23 07:51 62 110/57 L Coding Level of Care Code None Diagnoses Chronic hypertension affecting O10.919 CPT Codes Misx Procedure Codes - 39060 Placement of cervical dilator: 82461 Placement of cervical dilator ([id number])
[2023-04-11] MEDS: PENICILLIN G POTASSIUM 3 MU in DEXTROSE 5% 100 ML IV PRN ×2 (12:48→16:00)
[2023-04-11] MEDS ORDERED: fentaNYL citrate PF 100 MCG/2 ML VIAL ONE (15:51)
[2023-04-11] MEDS ORDERED: ePHEDrine sulfate 50 MG/ML AMP ONE (15:51)
[2023-04-11] MEDS ORDERED: SODIUM CHLORIDE 0.9% PF INJ 10 ML VIAL ONE (15:51)
[2023-04-11] MEDS ORDERED: LIDOCAINE 2%/EPINEPHRINE 1:200,000 20 ML PF ONE (15:52)
[2023-04-11] MEDS ORDERED: fentaNYL 2MCG/ML ROPIVACAINE 1.25MG/ML 100 ML BAG EPI ONE (15:52)
[2023-04-11] MEDS ORDERED: BUPIVACAINE 0.25% PF 30 ML VIAL ONE (15:52)
--- NOTE | 2023-04-11 16:11 | Anesthesiology Consultation ---
Date of Service April 11, 2023 Assessment & Plan ASA ASA2 Proposed Anesthesia Anesthesia Type: MAC History Height/Weight Height: 5 ft 4 in Weight: 106.141 kg Allergies Allergy/AdvReac Type Severity Reaction Status Date / Time No Known Drug Allergies Allergy Verified 04/10/23 13:17 Medications Home Medications Medication Instructions Recorded Confirmed Last Taken prenat.vits,josiah,uty-ofxv-zpocp 1 tab PO DAILY 07/12/22 04/11/23 04/10/23 escitalopram oxalate 10 mg tablet 20 mg PO DAILY 10/11/22 04/11/23 04/10/23 (Lexapro) propranolol 10 mg tablet 60 mg PO DAILY 11/10/22 04/11/23 04/10/23 aspirin 81 mg capsule 81 mg PO DAILY 03/03/23 04/11/23 04/10/23 breast pump #1 ea 04/04/23 04/10/23 Unknown Active Medications Generic Name Dose Route Start Last Admin Trade Name Freq PRN Reason Stop Dose Admin Lactated Ringer's 1,000 mls @ 125 mls/hr 04/11/23 08:18 04/11/23 15:50 Lr IV 04/13/23 08:17 999 mls/hr .Q8H PRN Infusion L&D Protocol Protocol Penicillin G Potassium 3 mu/ 106 mls @ 100 mls/hr 04/11/23 11:18 04/11/23 16:00 Dextrose IV 04/21/23 11:17 100 mls/hr Q4H PRN Administration GBS(+) Until Delivery Oxytocin 30 units in 500 mls @ 9 mls/hr 04/11/23 08:18 04/11/23 14:08 Pitocin IV 04/13/23 08:17 0.54 units/hr .Q24H PRN 9 mls/hr Labor Induction/Augmentation Titration Protocol 0.54 UNITS/HR Past Medical History Medical History Depression with anxiety Encounter for initial management of intravaginal contraceptive demise Gestational hypertension History of pre-eclampsia in prior , currently Migraines Mild pre-eclampsia in third trimester (02/20/14) Plantar fasciitis surgery on right foot Past Family History Family History Grandmother (Paternal) Hypertension Diabetes Breast cancer Denies family history of Ovarian cancer Colorectal cancer Past Surgical History Surgical History S/P tooth extraction Social History Smoking Status: Never smoker Do You Dip or Chew Tobacco: No Hx Alcohol Use: No Hx Substance Use: No substance use type: does not use Physical Exam Vital Signs Last Vital Signs Temp 98.2 F 04/11/23 15:30 Pulse 43 L 04/11/23 16:05 Resp 18 04/11/23 15:00 BP 134/67 04/11/23 15:08 Pulse Ox 99 04/11/23 16:05 Testing Laboratory Results 04/11/23 08:38 Blood Type AB Positive 04/11/23 08:38 Antibody Screen NEGATIVE 04/11/23 08:38
[2023-04-11] MEDS ORDERED: BUPIVACAINE 0.25% PF 30 ML VIAL EPI STA (16:34)
[2023-04-11] MEDS ORDERED: SODIUM CHLORIDE 0.9% PF INJ 10 ML VIAL EPI PRN (16:34)
[2023-04-11] MEDS ORDERED: ROPIVACAINE 0.5% PF 5 MG/ML 20 ML VIAL EPI PRN (16:34)
[2023-04-11] MEDS ORDERED: fentaNYL 2MCG/ML ROPIVACAINE 1.25MG/ML 100 ML BAG EPI PRN (16:34)
[2023-04-11] MEDS ORDERED: fentaNYL citrate PF 100 MCG/2 ML VIAL EPI STA (16:34)
[2023-04-11] MEDS ORDERED: NALOXONE HCL 1 MG in SODIUM CHLORIDE 0.9% 1000ML 1,000 ML IV PRN (16:34)
[2023-04-11] MEDS ORDERED: ePHEDrine sulfate 50 MG/ML AMP IV PRN (16:34)
[2023-04-11] MEDS ORDERED: LIDOCAINE 2% MPF LOCAL 5 ML VIAL EPI PRN (16:34)
[2023-04-11] MEDS ORDERED: LIDOCAINE 2%/EPINEPHRINE 1:200,000 20 ML PF EPI STA (16:34)
[2023-04-11] MEDS ORDERED: ONDANSETRON INJ 2 MG/ML 2 ML VIAL IV PRN (16:34)
[2023-04-11] MEDS ORDERED: BUPIVACAINE 0.25% PF 30 ML VIAL EPI PRN (16:34)
[2023-04-11] MEDS ORDERED: NALBUPHINE HCL INJ 10 MG/ML AMP IV PRN (16:34)
[2023-04-11] MEDS ORDERED: SODIUM CHLORIDE 0.9% PF INJ 10 ML VIAL EPI STA (16:34)
[2023-04-11] MEDS ORDERED: NALOXONE HCL 0.4 MG/1 ML VIAL/CARP IV PRN (16:34)
[2023-04-11] MEDS ORDERED: diphenhydrAMINE 50 MG/ML VIAL IV PRN (16:34)
[2023-04-11] MEDS ORDERED: fentaNYL citrate PF 100 MCG/2 ML VIAL EPI PRN (16:34)
[2023-04-11] MEDS ORDERED: BENZOCAINE 20% AER SPR 82.5 GM CAN EXT PRN (17:28)
[2023-04-11] MEDS ORDERED: oxyCODONE/ACETAMINOPHEN 5mg/325mg TAB PO PRN (17:28)
[2023-04-11] MEDS ORDERED: bisacodyL 10 MG SUPP PR PRN (17:28)
[2023-04-11] MEDS ORDERED: DIPHTHERIA/TETANUS/PERTUSSIS Vaccine (Tdap, Age 7+yrs) 0.5mL SYR/VL IM ONE (17:28)
[2023-04-11] MEDS ORDERED: HYDROCORTISONE ACETATE 25 MG SUPP PR PRN (17:28)
[2023-04-11] MEDS ORDERED: ACETAMINOPHEN 325 MG TAB PO PRN (17:28)
--- NOTE | 2023-04-11 17:42 | Delivery Summary ---
Vaginal Delivery Summary Date of Service April 11, 2023 Vaginal Delivery Summary [facility] Patient is a 27-year-old 6 para 311 3 female with chronic hypertension who presents for induction at 38 weeks. Cervical balloon was placed successfully and Pitocin induction was begun. The balloon fell out and after she received her second dose of penicillin for GBS prophylaxis, membranes ruptured for clear fluid. She requested epidural analgesia but was complete and painful shortly after it was placed. She pushed through 1 contraction for delivery of a viable female . After the head was delivered there was a tight nuchal cord which was clamped and cut prior to delivering the rest of the infant. Rest the infant was delivered without maternal effort. She was placed on the mother's abdomen for further attention and drying. She was vigorous and moving all 4 limbs and crying. After cord blood was obtained, the placenta was expressed intact with a three-vessel cord. bleeding was controlled with dilute Pitocin and fundal massage. Perineum was noted to be intact. Estimated blood loss was 200 cc. Mother and were doing well after delivery. [facility] [place] Vaginal Delivery Charge Delivery Type Details: [facility]
[2023-04-11] MEDS: IBUPROFEN 600 MG TAB PO PRN (19:32)
--- NOTE | 2023-04-11 20:07 | Anesthesia Procedure Note ---
Date of Service April 11, 2023 Anesthesia Post Epidural Note Vital Signs Vital Signs: Temp Pulse Resp BP Pulse Ox 98.2 F 59 L 18 116/63 100 04/11/23 18:55 04/11/23 19:09 04/11/23 18:55 04/11/23 19:09 04/11/23 17:00 Pain Intensity Bilateral Head: Pain Intensity: 3 Notes Mental Status: alert / awake / arousable and participated in evaluation Nausea / Vomiting: adequately controlled Pain: adequately controlled Airway Patency, RR, SpO2: stable & adequate BP & HR: stable & adequate Hydration State: stable & adequate Neuraxial Anesthesia: was administered and sensory block is resolving Anesthetic Complications: no major complications apparent and Pt Satisfied with anesthetic care Epidural: Removed without complications and With tip intact
[2023-04-11] MEDS ORDERED: Nursing to Pharmacy Communication SCH (20:45)
[2023-04-11] MEDS ORDERED: ESCITALOPRAM OXALATE 20 MG TAB PO SCH (21:00)
[2023-04-11] MEDS ORDERED: PROPRANOLOL HCL 20 MG TAB PO SCH (21:00)
[2023-04-11] MEDS: DOCUSATE SODIUM 100 MG CAP PO SCH (21:08)
[2023-04-12] MEDS: IBUPROFEN 600 MG TAB PO PRN ×4 (00:27→13:49)
--- NOTE | 2023-04-12 05:59 | Obstetrical Progress Note ---
Date of Service <Marta Dotson DO - Last Filed: 04/12/23 06:00> April 12, 2023 Assessment & Plan <Marta Dotson DO - Last Filed: 04/12/23 06:00> (1) care following vaginal delivery: Feels well today. Eating well, voiding well, ambulating well. Pain well controlled with motrin. Routine care; OOB, ambulation, continue regular diet. Plan for discharge later today. After discharge will have 6 week follow-up with Dr. Leong. <Jessica Leong MD, FACOG - Last Filed: 04/12/23 06:56> (1) care following vaginal delivery: Subjective <Marta Dotson DO - Last Filed: 04/12/23 06:00> Pt is a 27 y/o female who is PPD#1 following at 38 4/7 weeks after induction for chronic HTN. Today, the patient is doing well. She states that she has been ambulating, voiding, and passing gas since the delivery. She states that her bleeding has been moderate. She is tolerating regular diet without any nausea or vomiting. She has been without any issues. Her pain has been minimal and controlled with motrin. She states that she would like to go home today, if possible. No further questions or complaints at this time. Constitutional: no fever, no chills or no sweats Respiratory: no dyspnea Cardiovascular: no chest pain or no palpitations Breast: no breast pain Genitourinary (female): no dysuria Neurologic: no headache(s) no changes in vision, no headaches Physical Exam <Marta Dotson DO - Last Filed: 04/12/23 06:00> General: Alert, oriented. No acute distress. Cardiac: Regular rate and rhythm, no murmurs, rubs, or gallops. Respiratory: Clear to auscultation bilaterally, no wheezes/rales/rhonchi. No increased work of breathing. Symmetrical chest rise. No respiratory distress. Abdomen: Soft, nontender, nondistended. Bowel sounds present. Uterus: Uterine fundus firm, palpable below the umbilicus. Lower extremities: No lower extremity edema or swelling. No deep calf pain. Results & Data <Marta Dotson DO - Last Filed: 04/12/23 06:00> Vital Signs (Past 12 Hours) Vital Signs Temp Pulse Pulse Resp BP BP Pulse Ox 04/12/23 04:05 36.7 C 53 L 18 112/73 99 04/12/23 00:25 36.9 C 57 L 18 125/84 98 04/11/23 20:35 36.7 C 61 16 109/74 99 04/11/23 18:55 36.8 C 18 04/11/23 18:22 16 04/11/23 19:09 59 L 04/11/23 19:09 116/63 04/11/23 19:06 58 L 04/11/23 19:06 114/61 04/11/23 18:51 60 04/11/23 18:51 118/67 04/11/23 18:36 55 L 04/11/23 18:36 122/65 04/11/23 18:21 51 L 04/11/23 18:21 133/61 04/11/23 18:06 50 L 04/11/23 18:06 105/56 L O2 Del Method 04/12/23 04:05 Room Air 04/12/23 00:25 Room Air 04/11/23 20:35 Room Air 04/11/23 18:55 04/11/23 18:22 04/11/23 19:09 04/11/23 19:09 04/11/23 19:06 04/11/23 19:06 04/11/23 18:51 04/11/23 18:51 04/11/23 18:36 04/11/23 18:36 04/11/23 18:21 04/11/23 18:21 04/11/23 18:06 04/11/23 18:06 <Jessica Leong MD, FACOG - Last Filed: 04/12/23 06:56> Co-Signing Physician Notes Resident Physician Supervision Note: I was present with Dr. Dotson during the history and exam. I discussed the case with the resident and agree with the findings and plan as documented in the note. Any exceptions or clarifications are listed here: [None] Documented By: Jessica Leong MD, FACOG Resident Activity Tracking <Marta Dotson DO - Last Filed: 04/12/23 06:00> Resident Involvement: Resident Care Provided Care Provided: OB Delivery
[2023-04-12 06:15] LABS: Hematocrit (blood only) 30.2 % (37.0-47.0); Hemoglobin 10.1 g/dl (12.0-16.0); Mean Corpuscular Hemoglobin 30.7 pg (25.0-34.0); Mean Corpuscular Hgb Conc 33.4 g/dL (32.0-36.0); Mean Corpuscular Volume 91.8 fL (80.0-100.0); Mean Platelet Volume 10.4 fL (9.4-12.4); Platelet Count 242 K/uL (130-400); RDW Coefficient of Variation 12.6 % (11.5-14.5); RDW Standard Deviation 42.1 fL (36.4-46.3); Red Blood Count 3.29 M/uL (4.20-5.40); White Blood Count 11.17 K/ul (4.8-10.8)
[2023-04-12] MEDS ORDERED: PRENATAL VITAMIN 1 TAB PO SCH (08:00)
[2023-04-12] MEDS: DOCUSATE SODIUM 100 MG CAP PO SCH (08:39)
[2023-04-12] MEDS ORDERED: PROPRANOLOL HCL 20 MG TAB PO SCH (09:00)
[2023-04-12] MEDS ORDERED: ESCITALOPRAM OXALATE 20 MG TAB PO SCH (09:00)
[2023-04-12] MEDS ORDERED: bisacodyL 5 MG TABEC PO SCH (20:00)
== END 2023-04-12 19:45 | disposition home or self-care (01) | DRG 807 ==
LOC: 4S1 07:40 → 4E2 19:40